=== PATIENT | male | born 1970 | race Caucasian/White ===

== ENCOUNTER 2018-07-03 08:24 | Day surgery (SDC) | payer OTHER ==
[2018-07-03] MEDS ORDERED: IOHEXOL 300MG/ML 30 ML BTL (09:06)
[2018-07-03] MEDS ORDERED: PROPOFOL 20 ML ×2 (09:25→09:37)
[2018-07-03] MEDS ORDERED: LIDOCAINE 2% (SDV) 5 ML INJ (09:25)
[2018-07-03] MEDS ORDERED: MIDAZOLAM 1 MG/ML 2 ML INJ (09:25)
[2018-07-03] MEDS ORDERED: MEPERIDINE 25 MG INJ IV (09:30)
[2018-07-03] MEDS ORDERED: OXYCODONE/ACETAMINOPHEN (5/325) TAB PO (09:30)
[2018-07-03] MEDS ORDERED: PROCHLORPERAZINE 10 MG INJ IV (09:30)
[2018-07-03] MEDS ORDERED: DIPHENHYDRAMINE 50 MG INJ IV (09:30)
[2018-07-03] MEDS ORDERED: HYDROmorphONE 1 MG/5 ML IV SYRINGE IV (09:30)
[2018-07-03] MEDS ORDERED: FENTAnyl 50 MCG/ML VIAL IV (09:30)
[2018-07-03] MEDS ORDERED: ONDANSETRON 4 MG INJ IV (09:30)
[2018-07-03] MEDS ORDERED: CEFAZOLIN 1 GM INJ (09:37)
[2018-07-03] MEDS ORDERED: FENTAnyl 50 MCG/ML VIAL (09:39)
[2018-07-03] MEDS ORDERED: FAMOTIDINE 20 MG INJ (09:51)
[2018-07-03] MEDS ORDERED: ONDANSETRON 4 MG INJ (09:51)
[2018-07-03] MEDS ORDERED: DEXAMETHASONE 4 MG/ML 1 ML INJ (09:51)
[2018-07-03] MEDS ORDERED: EPHEDrine SULFATE 50 MG/5 ML SYG (10:02)
[2018-07-03] MEDS ORDERED: CEFAZOLIN 1 GM/50 ML (PMX) 50 ML IVPB (10:30)
[2018-07-03] MEDS ORDERED: IBUPROFEN 600 MG TAB PO (10:30)
== END 2018-07-03 12:20 | disposition home or self-care (01) ==
LOC: SDS 08:24
DX: R31.29 Other microscopic hematuria (principal)
CPT/HCPCS: 52005; 74420; 88305; 88341; 88342